=== PATIENT | female | born 1955 | race Hispanic/Latino ===

== ENCOUNTER 2023-01-02 13:42 | Emergency (ER) | payer OTHER ==
[~2023-01-02] VITALS: Ht 160 cm; Wt 93.4 kg
[~2023-01-02 13:42] MED LIST: ASPI-1197 PO; ATOR40TA69 PO; CARV6.25 PO; CLOP75TA32 PO; DIGO125T17 PO; ESCI-8 PO; FURO20TA4 PO; LOSA25TA41 PO; METF-444 PO
[2023-01-02 13:58] LABS: BASOPHILS % (AUTO) 0.2 % (0.0-5.0); EOSINOPHILS % (AUTO) 3.3 % (0.0-8.0); HEMATOCRIT 27.7 % (36-48); LYMPHOCYTES % (AUTO) 24.8 % (21.0-51.0); MEAN CORPUSCULAR HEMOGLOBIN 35.4 pg (27.0-33.0); MEAN CORPUSCULAR HGB CONC 37.9 g/dL (32.0-36.0); MEAN CORPUSCULAR VOLUME 93.3 fL (79-99); MONOCYTES % (AUTO) 6.5 % (3.0-13.0); NEUTROPHILS % (AUTO) 64.9 % (40.0-77.0); PLATELET COUNT (AUTO) 168 K/uL (130-400); RED BLOOD CELL COUNT(AUTO) 2.97 MIL/uL (4.00-5.50); RED CELL DISTRIBUTION WIDTH 17.6 % (11.0-15.5); WHITE BLOOD COUNT (AUTO) 10.2 K/uL (4.8-10.8)
[2023-01-02] MEDS ORDERED: ONDANSETRON 4MG INJ IVP ONE (14:00)
[2023-01-02] MEDS ORDERED: MORPHINE 2 MG SYG IVP ONE (14:00)
[2023-01-02] MEDS ORDERED: ASPIRIN 81MG CHEW TAB PO ONE (14:00)
[2023-01-02 14:21] LABS: CREATININE 1.5 mg/dL (0.5-1.5); POTASSIUM 4.3 mmol/L (3.5-5.1)
[2023-01-02 14:32] LABS: B-TYPE NATRIURETIC PEPTIDE 1620 pg/mL (0-100)
[2023-01-02 14:38] LABS: ALBUMIN 3.3 g/dL (3.5-5.0); TOTAL PROTEIN, SERUM 7.1 g/dL (6.0-8.3)
[2023-01-02] MEDS ORDERED: FUROSEMIDE 40MG VIAL IV ONE (20:30)
[2023-01-02] MEDS ORDERED: FURO40TA5 PO (22:49)
[2023-01-02] MEDS ORDERED: D-ME118S47 PO (22:49)
[2023-01-02 22:57] VITALS: BP 114/51
== END 2023-01-02 23:51 | disposition home or self-care (01) ==
LOC: EDH 13:42
DX: I11.0 Hypertensive heart disease with heart failure (principal); I50.1 Left ventricular failure, unspecified; R07.89 Other chest pain; E11.9 Type 2 diabetes mellitus without complications; E78.00 Pure hypercholesterolemia, unspecified; Z88.7 Allergy status to serum and vaccine; Z95.1 Presence of aortocoronary bypass graft; Z90.710 Acquired absence of both cervix and uterus; Z90.89 Acquired absence of other organs; Z98.890 Other specified postprocedural states; Z79.899 Other long term (current) drug therapy; Z79.82 Long term (current) use of aspirin; Z79.84 Long term (current) use of oral hypoglycemic drugs
CPT/HCPCS: 99285; 96374; 93971; 71045; 96375; 84484; 80053; 83880; 85025; 36415; 93005; J2405; J1940